=== PATIENT | male | born 1965 | race African-American/Black ===

== ENCOUNTER 2019-07-01 10:37 | Emergency (ER) | payer MEDICAID ==
[~2019-07-01] VITALS: Ht 193 cm; Wt 71.8 kg
[2019-07-01 11:53] VITALS: BP 102/58
[2019-07-01] MEDS ORDERED: LIDOCAINE HCL/PF 1% 10 MG/ML 5ML VIAL IJ ONE (12:30)
== END 2019-07-01 13:09 | disposition home or self-care (01) ==
LOC: ER 10:47
DX: L02.01 Cutaneous abscess of face (principal); G40.909 Epilepsy, unspecified, not intractable, without status epilepticus; E11.9 Type 2 diabetes mellitus without complications; G20 Parkinson's disease; F17.210 Nicotine dependence, cigarettes, uncomplicated; Z87.828 Personal history of other (healed) physical injury and trauma
CPT/HCPCS: 10060; 99283; Z7610

== ENCOUNTER 2020-04-06 08:53 | Emergency (ER) | payer MEDICAID ==
[~2020-04-06] VITALS: Ht 190.5 cm; Wt 89.0 kg
[2020-04-06 09:21] VITALS: BP 117/68
== END 2020-04-06 10:05 | disposition home or self-care (01) ==
LOC: ER 09:40
DX: L20.89 Other atopic dermatitis (principal); I10 Essential (primary) hypertension; E11.9 Type 2 diabetes mellitus without complications; G40.909 Epilepsy, unspecified, not intractable, without status epilepticus
CPT/HCPCS: 99283

== ENCOUNTER 2020-06-17 10:36 | Emergency (ER) | payer MEDICAID ==
[~2020-06-17] VITALS: Ht 193 cm; Wt 83.0 kg
[2020-06-17] MEDS ORDERED: HYDROCODONE/ACETAMINOPHEN 5/325MG TABLET PO ONE (11:30)
[2020-06-17] MEDS ORDERED: CEPHALEXIN 250MG CAPSULE PO ONE (11:30)
[2020-06-17] MEDS: IBUPROFEN 600MG TABLET PO ONE ×2 (13:33→13:35)
[2020-06-17 14:30] VITALS: BP 126/71
== END 2020-06-17 14:30 | disposition home or self-care (01) ==
LOC: ER 12:49
DX: S93.492A Sprain of other ligament of left ankle, initial encounter (principal); L03.032 Cellulitis of left toe; M25.511 Pain in right shoulder; G40.909 Epilepsy, unspecified, not intractable, without status epilepticus; E11.9 Type 2 diabetes mellitus without complications; G20 Parkinson's disease; Z89.421 Acquired absence of other right toe(s); W01.0XXA Fall on same level from slipping, tripping and stumbling without subsequent striking against object, initial encounter; Y93.89 Activity, other specified; Y92.018 Other place in single-family (private) house as the place of occurrence of the external cause
CPT/HCPCS: 73030; 73610; 73630; 99284